=== PATIENT | male | born 1960 | race Caucasian/White ===

== ENCOUNTER 2020-10-08 07:50 | Emergency (ER) | payer OTHER ==
[2020-10-08 09:41] LABS: RED BLOOD COUNT 5.09 M/UL (4.20-5.50); WHITE BLOOD COUNT 8.3 K/UL (4.5-11.0)
[2020-10-08 10:06] LABS: BUN/CREATININE RATIO 22 (0-10)
[2020-10-08] MEDS ORDERED: MOBIC15 MG PO (11:34)
== END 2020-10-08 12:20 | disposition home or self-care (01) ==
LOC: ER1 07:50
PROVIDERS: Physician Assistant
DX: M16.11 Unilateral primary osteoarthritis, right hip (principal); M25.511 Pain in right shoulder; M25.512 Pain in left shoulder; R63.4 Abnormal weight loss; E78.5 Hyperlipidemia, unspecified; E11.9 Type 2 diabetes mellitus without complications; Z79.82 Long term (current) use of aspirin; Z79.899 Other long term (current) drug therapy
CPT/HCPCS: 71046; 72170; 73030; 80053; 81001; 82550; 82553; 83874; 84484; 85025; 99283